=== PATIENT | male | born 1950 | race Caucasian/White ===

== ENCOUNTER 2021-02-09 02:40 | Emergency (ER) | payer OTHER ==
[~2021-02-09] VITALS: Ht 175.3 cm; Wt 90.7 kg
[2021-02-09] MEDS ORDERED: LORAZEPAM 2 MG/1 ML VIAL ONE (02:56)
[2021-02-09] MEDS ORDERED: LORAZEPAM 2 MG/1 ML VIAL IV ONE (03:00)
[2021-02-09] MEDS ORDERED: CLONIDINE HCL 0.1 MG TABLET PO ONE (03:00)
[2021-02-09] MEDS ORDERED: METOPROLOL TARTRATE 5 MG/5 ML VIAL IVP ONE ×2 (03:00→03:05)
[2021-02-09] MEDS ORDERED: CLONIDINE HCL 0.1 MG TABLET ONE (03:05)
[2021-02-09] MEDS ORDERED: METO25TA6 PO (03:06)
[2021-02-09] MEDS ORDERED: LORA0.5T48 PO (03:06)
[2021-02-09] MEDS ORDERED: CLON0.1T PO (03:06)
--- NOTE | 2021-02-09 03:08 | NUR ---
Patient BIB [id number] from home for c/o not being able to take hypertension medications, and anti-anxiety medications for about 2 days now. Patient A/Ox4, is able to speak in complete sentences. Patient was able to transfer from ambulance gurney to bed with a shaky gait, but was able to ambulate. Patient presents tremulous, denies any alcohol use. Denies any cp, or any chest discomfort. Patient in bed at lowest position, sr upx2, call light within reach. Fall and safety precautions implemented per protocol. Patient connected to the thickener operator, will continue to monitor for any acute changes or progression.
--- NOTE | 2021-02-09 04:32 | NUR ---
Patient discharged to home in stable condition. Written and verbal after care instructions given. Patient verbalizes understanding of instructions. Stressed follow up or return to ER for worsening s/s. IV removed. Catheter intact and site benign. Pressure and 4x4 gauze applied to site. No bleeding noted. Patient will be taking a taxi home. Patient A/Ox4, and is able to ambulate with steady gait.
[2021-02-09 04:34] VITALS: BP 163/93
== END 2021-02-09 04:40 | disposition home or self-care (01) ==
LOC: ER 02:45
DX: F13.239 Sedative, hypnotic or anxiolytic dependence with withdrawal, unspecified (principal); R00.0 Tachycardia, unspecified; F41.9 Anxiety disorder, unspecified; Z79.899 Other long term (current) drug therapy; G47.00 Insomnia, unspecified; Z87.11 Personal history of peptic ulcer disease; I10 Essential (primary) hypertension
CPT/HCPCS: 96374; 96375; 99284; J2060; J3490; A4663